=== PATIENT | male | born 1965 | race American Indian/Alaskan Native ===

== ENCOUNTER 2022-03-09 16:16 | Inpatient (IN) | payer SELFPAY ==
[2022-03-09] MEDS ORDERED: SODIUM CHLORIDE 0.9% 1000 ML 1,000 ML IV ONE (17:22)
--- NOTE | 2022-03-09 17:35 | Emergency Department Report ---
ED General Adult HPI - General Chief complaint: Syncope Stated complaint: PASSED OUT AT WORK PUI?: No Time Seen by Provider: 03/09/22 16:59 Source: patient, EMS Mode of arrival: Stretcher Limitations: No Limitations - History of Present Illness Initial comments: Pleasant 56-year-old male who stated he is prediabetic and also had a prostate surgery back in January 28 due to prostate cancer at [facility] by EMS today with concerns of almost syncopal episode at work [employer]. Patient denies passing and denies any other symptoms patient denies any fever chill night sweat dizziness blurred vision lightheadedness headache tinnitus ear pain runny nose sore throat loss of taste loss of smell chest pain palpitation short of breath cough abdominal pain nausea vomiting diarrhea constipation joint pain muscle pain new rash and heat or cold intolerance Severity scale (0 -10): 0 - Related Data Allergies Allergy/AdvReac Type Severity Reaction Status Date / Time No Known Allergies Allergy Verified 03/09/22 16:41 ED Review of Systems ROS: Stated complaint: PASSED OUT AT WORK Other details as noted in HPI Comment: All other systems reviewed and negative Constitutional: no symptoms reported, see HPI Eyes: as per HPI. denies: vision change ENT: as per HPI Respiratory: no symptoms reported, see HPI Cardiovascular: as per HPI. denies: chest pain, palpitations Endocrine: no symptoms reported, see HPI Gastrointestinal: as per HPI Genitourinary: as per HPI Musculoskeletal: as per HPI Skin: as per HPI Neurological: as per HPI Psychiatric: as per HPI Hematological/Lymphatic: as per HPI ED Past Medical Hx - Past Medical History Previous Medical History?: Yes Hx of Cancer: Yes (prostate cancer) Additional medical history: kidney removal ED Physical Exam - General Limitations: No Limitations - Head Head exam: Present: atraumatic, normocephalic, normal inspection - Eye Eye exam: Present: normal appearance, PERRL, EOMI Pupils: Present: normal accommodation - ENT ENT exam: Present: normal exam, mucous membranes dry - Neck Neck exam: Present: normal inspection, full ROM - Respiratory Respiratory exam: Present: normal lung sounds bilaterally - Cardiovascular Cardiovascular Exam: Present: regular rate, normal rhythm, normal heart sounds - GI/Abdominal GI/Abdominal exam: Present: soft - Extremities Exam Extremities exam: Present: normal inspection, full ROM - Back Exam Back exam: Present: normal inspection, full ROM - Neurological Exam Neurological exam: Present: alert, altered, oriented X3, CN II-XII intact - Psychiatric Psychiatric exam: Present: normal affect, normal mood - Skin Skin exam: Present: normal color ED Course Vital Signs 03/09/22 03/09/22 03/09/22 16:40 17:43 20:05 Temperature 98.8 F Pulse Rate 65 Respiratory 16 Rate Blood Pressure 130/70 [Right] O2 Sat by Pulse 100 99 100 Oximetry - Reevaluation(s) Reevaluation #1: 03/09/22 18:48 EKG AT 18:[address] ELEVATION/CONCAVE AT V2 ONLY; REST OF LEAD ARE ALL WITHOUT ST ELEVATION. I HAVE REEVALUATE THE PATIENT AND PATIENT HIMSELF DENIES ANY CHEST DISCOMFORT OR PALPITATION. PATIENT ALSO DENIES ANY OTHER SYMPTOMS. I WILL ORDER TOROPONIN/CK/ESR/CRP AND REPEAT EKG LATER. Reevaluation #2: 03/09/22 20:56 WILL SIGN OUT MY PATIENT CARE TO MY COLLEAGUE DR. CRUZ - Consultations Consultation #1: 03/09/22 20:[address] PEREZ (CABIN SUPERVISOR) AND SENT EKG IMAGE TO [phone]; AWARE OF NO CP BUT MILDLY ELEVATED CK. RECOMMENDATION IS OBSERVATION OVERNIGHT AND ECHO IN THE MORNING. WILL CALL HOSPITALIST. ED Medical Decision Making - Lab Data Result diagrams: 03/09/22 17:37 03/09/22 17:37 - EKG Data -: EKG Interpreted by Me EKG shows normal: ST-T waves (ST CONCAVE ELEVATION IN V2) Rate: normal - Medical Decision Making SPOKE TO CABIN SUPERVISOR DR. PEREZ; RECOMMEND OBSERVATION OVERNIGHT WITH ECHO IN THE MORNING AND HAVE HOSPITALIST PLACE AN CABIN SUPERVISOR CONSULTATION. PENDING DR. ELIAS TO CALL BACK. Critical care attestation.: If time is entered above; I have spent that time in minutes in the direct care of this critically ill patient, excluding procedure time. ED Disposition Clinical Impression: Elevated CK, Near syncope Disposition: 02 SHORT TERM HOSPITAL Is pt being admited?: Yes Does the pt Need Aspirin: No Condition: Stable Time of Disposition: 20:30
--- NOTE | 2022-03-09 17:40 | XRay Report ---
CHEST 1 VIEW INDICATION / CLINICAL INFORMATION: syncope. COMPARISON: None FINDINGS: SUPPORT DEVICES: None. HEART / MEDIASTINUM: No significant abnormality. LUNGS / PLEURA: No significant pulmonary or pleural abnormality. No pneumothorax. ADDITIONAL FINDINGS: No significant additional findings. IMPRESSION: 1. No acute findings. Signer Name: Cortes Ng MD Signed: 03/09/2022 5:35 PM Workstation Name: [id number]
[2022-03-09 17:54] LABS: Hematocrit 40.2 % (35.5-45.6); Hemoglobin 12.5 gm/dl (11.8-15.2); Mean Corpuscular HGB Conc 31 % (32-34); Mean Corpuscular Volume 77 fl (84-94); Platelet Count 345 K/mm3 (140-440); Red Blood Count 5.22 M/mm3 (3.65-5.03); Red Cell Distribution Width 16.5 % (13.2-15.2)
[2022-03-09 18:17] LABS: Calcium 9.3 mg/dL (8.4-10.2)
[2022-03-09 21:41] LABS: Bacteria,Urine 1+ /HPF (Negative); Bilirubin,Urine NEG (Negative); Blood,Urine SM (Negative); Color,Urine Yellow (Yellow); Mucus,Urine FEW /HPF
--- NOTE | 2022-03-09 21:44 | Event Note ---
Date: 03/09/22 (@ 21:00) Patient care transferred to ia from Dr. Pate. Per Dr. Pate, patient is to be admitted but he is unable to reach the hospitalist @ this time. ED Medical Decision Making - Lab Data Result diagrams: 03/09/22 17:37 03/09/22 17:37 Laboratory Tests 03/09/22 03/09/22 03/09/22 17:37 17:37 18:55 WBC 8.4 RBC 5.22 H Hgb 12.5 Hct 40.2 MCV 77 L MCH 24 L MCHC 31 L RDW 16.5 H Plt Count 345 ESR Sodium 143 Potassium 4.6 Chloride 103.9 Carbon Dioxide 23 Anion Gap 21 BUN 12 Creatinine 1.4 H Estimated GFR 52 BUN/Creatinine Ratio 9 Glucose 77 Calcium 9.3 Magnesium 2.10 Total Bilirubin 0.40 AST 22 ALT 11 Alkaline Phosphatase 67 Total Creatine Kinase 305 H Troponin T < 0.010 C-Reactive Protein Total Protein 6.9 Albumin 4.0 Albumin/Globulin Ratio 1.4 Urine Bilirubin Urine RBC (Auto) U Epithel Cells (Auto) 03/09/22 03/09/22 03/09/22 18:55 18:55 Unknown WBC RBC Hgb Hct MCV MCH MCHC RDW Plt Count ESR 2 Sodium Potassium Chloride Carbon Dioxide Anion Gap BUN Creatinine Estimated GFR BUN/Creatinine Ratio Glucose Calcium Magnesium Total Bilirubin AST ALT Alkaline Phosphatase Total Creatine Kinase Troponin T C-Reactive Protein 0.30 Total Protein Albumin Albumin/Globulin Ratio Urine Bilirubin Neg Urine RBC (Auto) 6.0 U Epithel Cells (Auto) < 1.0 CXR: no acute cardiopulmnary process No CT head done EKG @ 20:07 prior to my shift: HR 66, SR, nml intervals, isolated ST elevation in V2 without reciprocal ST depressions Dr. Cobos (cardiology) was consulted by Dr. Pate and he reportedly advised admitting patient to Medicine for ACS work up - Medical Decision Making IMPRESSION: 1. Loss of consciousness 2. Abnormal EKG ED Disposition Disposition: ADMITTED INPATIENT Is pt being admited?: Yes Does the pt Need Aspirin: No Condition: Stable Time of Disposition: 21:30 (Patient admitted to Dr. Nelson. Sign out was given by me to the admitting physician. )
[2022-03-09] MEDS ORDERED: ACETAMINOPHEN 325 MG TAB PO PRN ×2 (21:48)
[2022-03-09] MEDS ORDERED: MORPHINE 4 MG/1 ML INJ IV PRN ×2 (21:48)
[2022-03-09] MEDS ORDERED: MORPHINE 2 MG/1 ML INJ IV PRN (21:48)
[2022-03-09] MEDS ORDERED: NITROGLYCERIN 0.4 MG TAB SUBL SL PRN (21:48)
[2022-03-09] MEDS ORDERED: ONDANSETRON 4 MG/2 ML INJ IV PRN (21:48)
[2022-03-09] MEDS ORDERED: MAGNESIUM HYDROXIDE (MOM) ORAL LIQD UDC PO PRN (21:48)
--- NOTE | 2022-03-09 22:02 | History and Physical Report ---
History of Present Illness Date of examination: 03/09/22 Date of admission: 03/09/2022 Chief complaint: Syncope History of present illness: 56-year-old male with known history of prediabetes and prostate cancer presenting to the emergency room today for evaluation of previous syncopal episode while at work at [employer]. Patient denies any headache or dizziness, denies any blurry vision, denies any diaphoresis. He denies any fever or chills, no chest pain or shortness of breath, no nausea vomiting no abdominal pain. Work-up in the emergency room today, EKG was significant for an isolated ST elevation in V2 without reciprocal ST depressions. Findings were communicated to the agricultural education professor on-call who recommended no further work-up. Chest x-ray and other labs were otherwise unremarkable. Past History Past Medical History: other (History of prostate cancer) Past Surgical History: Other (Prostate cancer status post surgery, nephrectomy) Social history: smoking (Current daily smoker), other (Uses marijuana and cocaine occasionally. Last cocaine use was about a week ago) Family history: no significant family history Medications and Allergies Allergies Allergy/AdvReac Type Severity Reaction Status Date / Time No Known Allergies Allergy Verified 03/09/22 21:59 Home Medications Medication Instructions Recorded Confirmed Last Taken Type No Known Home Medications [No 03/09/22 03/09/22 Unknown History Reported Home Medications] Active Meds: Active Medications Acetaminophen (Acetaminophen 325 Mg Tab) 650 mg PO Q4H PRN PRN Reason: Pain MILD(1-3)/Fever >100.5/SIEGEL Review of Systems Constitutional: no fever, no chills Ears, nose, mouth and throat: no nasal congestion, no sore throat Respiratory: no cough, no shortness of breath Gastrointestinal: no abdominal pain, no nausea, no vomiting, no diarrhea, no coffee ground emesis Genitourinary Male: no dysuria, no hematuria, no flank pain, no urinary frequency, no urinary hesitancy, no polyuria Musculoskeletal: no neck pain, no low back pain Integumentary: no rash, no pruritis Neurological: syncope, no seizures, no headaches, no confusion Psychiatric: no anxiety, no depression Endocrine: no polyphagia, no polydipsia, no polyuria Exam - Constitutional Vitals: Temp Pulse Resp BP Pulse Ox 98.8 F 65 16 130/70 100 03/09/22 16:40 05/14/22 16:40 03/09/22 16:40 03/09/22 16:40 03/09/22 20:05 General appearance: Present: no acute distress, well-nourished - EENT Eyes: Present: PERRL, EOM intact. Absent: scleral icterus ENT: hearing intact, clear oral mucosa, dentition normal - Neck Neck: Present: supple, normal ROM - Respiratory Respiratory effort: normal Respiratory: bilateral: CTA - Cardiovascular Rhythm: regular Heart Sounds: Present: S1 & S2. Absent: gallop, systolic murmur, diastolic murmur, rub, click - Extremities Extremities: no ischemia, pulses intact, pulses symmetrical, No edema, normal temperature, normal color, Full ROM Peripheral Pulses: within normal limits - Abdominal General gastrointestinal: Present: soft, non-tender, non-distended, normal bowel sounds, other (Midline scar of old surgery on abdomen). Absent: mass - Integumentary Integumentary: Present: clear, warm, dry, normal turgor. Absent: rash - Musculoskeletal Musculoskeletal: strength equal bilaterally - Psychiatric Psychiatric: appropriate mood/affect, intact judgment & insight, memory intact, cooperative - Neurologic Neurologic: CNII-XII intact, no focal deficits, moves all extremities HEART Score - HEART Score Troponin: Troponin T < 0.010 ng/mL (0.00-0.029) 03/09/22 18:55 Results - Labs CBC & Chem 7: 03/10/22 05:05 03/10/22 05:05 Labs: Abnormal lab results 03/09/22 03/09/22 03/09/22 Range/Units 17:37 17:37 18:55 RBC 5.22 H (3.65-5.03) M/mm3 MCV 77 L (84-94) fl MCH 24 L (28-32) pg MCHC 31 L (32-34) % RDW 16.5 H (13.2-15.2) % Creatinine 1.4 H (0.8-1.3) mg/dL Total Creatine Kinase 305 H (55-170) units/L Urine WBC (Auto) (0.0-6.0) /HPF 03/09/22 Range/Units Unknown RBC (3.65-5.03) M/mm3 MCV (84-94) fl MCH (28-32) pg MCHC (32-34) % RDW (13.2-15.2) % Creatinine (0.8-1.3) mg/dL Total Creatine Kinase (55-170) units/L Urine WBC (Auto) 132.0 H (0.0-6.0) /HPF Assessment and Plan - Patient Problems (1) Syncope Current Visit: Yes Status: Acute Plan to address problem: Etiology is unclear. Patient is being scheduled for echocardiogram and carotid Doppler. (2) Abnormal EKG Current Visit: Yes Status: Acute Plan to address problem: Will continue to monitor patient on telemetry. We will also trend cardiac enzymes. Consult placed to cardiology for further evaluation and recommendations. (3) History of prostate cancer Current Visit: Yes Status: Acute Plan to address problem: Patient is status post prostatectomy at [facility] on January 28, 2022. (4) History of nephrectomy Current Visit: Yes Status: Acute (5) Tobacco abuse Current Visit: Yes Status: Acute Plan to address problem: + On quitting tobacco abuse. (6) Elevated CK Current Visit: Yes Status: Acute Plan to address problem: Will continue to monitor CK level. (7) DVT prophylaxis Current Visit: Yes Status: Acute Plan to address problem: Patient placed on subcutaneous heparin. (8) Full code status Current Visit: Yes Status: Acute Plan to address problem: Patient is full code.
[2022-03-10] MEDS: SODIUM CHLORIDE 0.9% 1000 ML 1,000 ML IV SCH ×3 (01:28→17:19)
[2022-03-10 05:25] LABS: Basophils # (Auto) 0.1 K/mm3 (0.0-0.1); Basophils % (Auto) 0.9 % (0.0-1.8); Eosinophils # (Auto) 0.2 K/mm3 (0.0-0.4); Eosinophils % (Auto) 2.9 % (0.0-4.3); Lymphocytes # (Auto) 2.3 K/mm3 (1.2-5.4); Lymphocytes % (Auto) 36.4 % (13.4-35.0); Mean Corpuscular HGB Conc 31 % (32-34); Mean Corpuscular Volume 77 fl (84-94); Monocytes # (Auto) 0.9 K/mm3 (0.0-0.8); Monocytes % (Auto) 13.6 % (0.0-7.3); Platelet Count 292 K/mm3 (140-440); Red Blood Count 4.52 M/mm3 (3.65-5.03); Red Cell Distribution Width 16.5 % (13.2-15.2)
[2022-03-10 05:35] LABS: BUN/Creatinine Ratio 12; Blood Urea Nitrogen 14 mg/dL (9-20); Calcium 8.4 mg/dL (8.4-10.2); Hemolysis Index 5
[2022-03-10] MEDS: ASPIRIN EC 325 MG TAB PO SCH (09:02)
[2022-03-10] MEDS: traMADol 50 MG TAB PO PRN (09:02)
--- NOTE | 2022-03-10 11:36 | Consultation ---
History of Present Illness Consult date: 03/10/22 Consult reason: other (Near syncope) History of present illness: 56-year-old male with past medical history of prostate cancer status post surger y in January 2022 and prediabetes is admitted after episode of near syncope while at work. Patient works at [employer] and reports that he became dizzy and felt like he would pass out. He did not have loss of consciousness. He otherwise denies chest pain, shortness of breath, or lightheadedness. Work-up notable for EKG with possible type 2 Brugada pattern but no acute ischemic changes, troponin x2 negative, CK 305, creatinine 1.4 on presentation (currently 1.2). Past History Past Medical History: other (History of prostate cancer) Past Surgical History: Other (Prostate cancer status post surgery, nephrectomy) Social history: smoking (Current daily smoker), other (Uses marijuana and cocaine occasionally. Last cocaine use was about a week ago) Family history: no significant family history Medications and Allergies Allergies Allergy/AdvReac Type Severity Reaction Status Date / Time No Known Allergies Allergy Verified 03/09/22 21:59 Home Medications Medication Instructions Recorded Confirmed Last Taken Type No Known Home Medications [No 03/09/22 03/09/22 Unknown History Reported Home Medications] Active Meds: Active Medications Acetaminophen (Acetaminophen 325 Mg Tab) 650 mg PO Q4H PRN PRN Reason: Pain MILD(1-3)/Fever >100.5/SIEGEL Aspirin (Aspirin Ec 325 Mg Tab) 325 mg PO QDAY [facility] Last Admin: 03/10/22 09:02 Dose: 325 mg Heparin Sodium (Porcine) (Heparin 5,000 Unit/1 Ml Vial) 5,000 unit SUB-Q Q8HR [facility] Sodium Chloride (Nacl 0.9% 1000 Ml) 1,000 mls @ 125 mls/hr IV DIRECT [facility] Last Admin: 03/10/22 09:30 Dose: 125 mls/hr Magnesium Hydroxide (Magnesium Hydroxide (Mom) Oral Liqd Udc) 30 ml PO Q4H PRN PRN Reason: Constipation Morphine Sulfate (Morphine 2 Mg/1 Ml Inj) 2 mg IV Q4H PRN PRN Reason: Pain, Moderate (4-6) Morphine Sulfate (Morphine 4 Mg/1 Ml Inj) 4 mg IV Q4H PRN PRN Reason: Pain , Severe (7-10) Morphine Sulfate (Morphine 4 Mg/1 Ml Inj) 2 mg IV Q5MIN PRN PRN Reason: Chest Pain unrelieved by NTG Nitroglycerin (Nitroglycerin 0.4 Mg Tab Subl) 0.4 mg SL Q5M PRN PRN Reason: Chest Pain Ondansetron HCl (Ondansetron 4 Mg/2 Ml Inj) 4 mg IV Q8H PRN PRN Reason: Nausea And Vomiting Sodium Chloride (Sodium Chloride 0.9% 10 Ml Flush Syringe) 10 ml IV BID CANDIDO Last Admin: 03/10/22 09:02 Dose: 10 ml Sodium Chloride (Sodium Chloride 0.9% 10 Ml Flush Syringe) 10 ml IV PRN PRN PRN Reason: LINE FLUSH Sodium Chloride (Sodium Chloride 0.9% 10 Ml Flush Syringe) 10 ml IV PRN PRN PRN Reason: LINE FLUSH Tramadol HCl (Tramadol 50 Mg Tab) 50 mg PO Q6H PRN PRN Reason: Pain, Moderate (4-6) Last Admin: 03/10/22 09:02 Dose: 50 mg Physical Examination Vital Signs Temp Pulse Resp BP Pulse Ox 98.8 F 65 16 130/70 100 03/09/22 16:40 03/09/22 16:40 03/09/22 16:40 03/09/22 16:40 03/09/22 16:40 Results 03/10/22 05:05 03/10/22 05:05 Cardiac Enzymes 03/09/22 Range/Units 17:37 AST 22 (5-40) units/L CBC 03/09/22 03/10/22 Range/Units 17:37 05:05 WBC 8.4 6.3 (4.5-11.0) K/mm3 RBC 5.22 H 4.52 (3.65-5.03) M/mm3 Hgb 12.5 11.0 L (11.8-15.2) gm/dl Hct 40.2 35.0 L (35.5-45.6) % Plt Count 345 292 (140-440) K/mm3 Lymph # (Auto) 2.3 (1.2-5.4) K/mm3 [place] # (Auto) 0.9 H (0.0-0.8) K/mm3 Eos # (Auto) 0.2 (0.0-0.4) K/mm3 Baso # (Auto) 0.1 (0.0-0.1) K/mm3 Comprehensive Metabolic Panel 03/09/22 03/10/22 Range/Units 17:37 05:05 Sodium 143 138 (137-145) mmol/L Potassium 4.6 3.8 (3.6-5.0) mmol/L Chloride 103.9 104.6 (98-107) mmol/L Carbon Dioxide 23 23 (22-30) mmol/L BUN 12 14 (9-20) mg/dL Creatinine 1.4 H 1.2 (0.8-1.3) mg/dL Glucose 77 95 (75-100) mg/dL Calcium 9.3 8.4 (8.4-10.2) mg/dL AST 22 (5-40) units/L ALT 11 (7-56) units/L Alkaline Phosphatase 67 (35-129) units/L Total Protein 6.9 (6.3-8.2) g/dL Albumin 4.0 (3.9-5) g/dL Tele - SR with HR to ~45 overnight 03/09/2022 EKG - SR, incomplete RBBB with J point elevation (possibly type 2 Br pattern) Assessment and Plan #Near syncope #Possible Bruagda type 2 pattern on EKG #Nocturnal sinus bradycardia #Prostate CA s/p surgery January 2022 #Pre-DM EKG is possibly suggestive of type 2 Brugada pattern. Will repeat EKG by moving right intercostal leads to 1st and 2nd intercostal spaces. Await echo. Recommend fever avoidance / prevention using tylenol / NSAID. Fever is known to trigger transition to Brugada pattern 1. Patient will likely benefit from out-patient event monitor and consideration of procainamide drug challenge. Continue telemetry monitoring.
--- NOTE | 2022-03-10 12:30 | Progress Note ---
Assessment and Plan Assessment and plan: #Syncope -Etiology is unclear -orthostatic VS ordered -echocardiogram pending #Abnormal EKG -continue telemetry -troponin negative x2 -EKG interpreted to have possible Type 2 Brugada pattern per Toggle Press Operator -Cardiology following, recommendations appreciated #Volume depletion -Patient with hemoconcentration on labs -Improvement status post IVFs #History of prostate cancer -status post prostatectomy at [facility] on January 28, 2022. #History of nephrectomy -stable #Tobacco abuse #Tobacco cessation counseling -smokes about 4 cigarettes daily -smoking cessation counseling, supportive care, behavior change counseling, +15 minutes. #Elevated CK -CK 305, troponin negative x2, SCr 1.2 -will trend for improvement #Advanced care planning -Disease education conducted, care plan discussed, diagnoses discussed, prognosis discussed, and patient acknowledges understanding with care plan -Time: +30 min History Interval history: No acute events overnight. Patient reports not having any symptoms prior to syncopal episode. Currently not having any headache, lightheadedness, dizziness, chest pain or shortness of breath. No complaints at this time. Hospitalist Physical - Physical exam Narrative exam: GENERAL: Thin male. In no acute distress. HEENT: Normocephalic. Atraumatic. NECK: Supple. CHEST/LUNGS: CTAB on room air HEART/CARDIOVASCULAR: RRR. No murmur, rubs or gallops appreciated. ABDOMEN: +BS. NT/ND. SKIN: No rashes noted. NEURO: No focal motor deficit. Follows all commands. MUSCULOSKELETAL: No joint effusion EXTREMITIES: No cyanosis, clubbing or edema. PSYCH: Cooperative. - Constitutional Vitals: Temp Pulse Resp BP Pulse Ox 98.0 F 64 14 128/93 97 03/10/22 10:56 03/10/22 10:56 03/10/22 10:56 03/10/22 10:56 03/10/22 10:56 General appearance: Present: no acute distress, well-nourished HEART Score - HEART Score Troponin: Troponin T < 0.010 ng/mL (0.00-0.029) 03/10/22 05:05 Results - Labs CBC & Chem 7: 03/10/22 05:05 03/10/22 05:05 Labs: Laboratory Last Values WBC 6.3 K/mm3 (4.5-11.0) 03/10/22 05:05 RBC 4.52 M/mm3 (3.65-5.03) 03/10/22 05:05 Hgb 11.0 gm/dl (11.8-15.2) L 03/10/22 05:05 Hct 35.0 % (35.5-45.6) L 03/10/22 05:05 MCV 77 fl (84-94) L 03/10/22 05:05 MCH 24 pg (28-32) L 03/10/22 05:05 MCHC 31 % (32-34) L 03/10/22 05:05 RDW 16.5 % (13.2-15.2) H 03/10/22 05:05 Plt Count 292 K/mm3 (140-440) 03/10/22 05:05 Lymph % (Auto) 36.4 % (13.4-35.0) H 03/10/22 05:05 [place] % (Auto) 13.6 % (0.0-7.3) H 03/10/22 05:05 Eos % (Auto) 2.9 % (0.0-4.3) 03/10/22 05:05 Baso % (Auto) 0.9 % (0.0-1.8) 03/10/22 05:05 Lymph # (Auto) 2.3 K/mm3 (1.2-5.4) 03/10/22 05:05 [place] # (Auto) 0.9 K/mm3 (0.0-0.8) H 03/10/22 05:05 Eos # (Auto) 0.2 K/mm3 (0.0-0.4) 03/10/22 05:05 Baso # (Auto) 0.1 K/mm3 (0.0-0.1) 03/10/22 05:05 Seg Neutrophils % 46.2 % (40.0-70.0) 03/10/22 05:05 Seg Neutrophils # 2.9 K/mm3 (1.8-7.7) 03/10/22 05:05 ESR 2 mm/Hr (0-20) 03/09/22 18:55 Sodium 138 mmol/L (137-145) 03/10/22 05:05 Potassium 3.8 mmol/L (3.6-5.0) 03/10/22 05:05 Chloride 104.6 mmol/L (98-107) 03/10/22 05:05 Carbon Dioxide 23 mmol/L (22-30) 03/10/22 05:05 Anion Gap 14 mmol/L 03/10/22 05:05 BUN 14 mg/dL (9-20) 03/10/22 05:05 Creatinine 1.2 mg/dL (0.8-1.3) 03/10/22 05:05 Estimated GFR > 60 ml/min 03/10/22 05:05 BUN/Creatinine Ratio 12 % 03/10/22 05:05 Glucose 95 mg/dL (75-100) 03/10/22 05:05 Calcium 8.4 mg/dL (8.4-10.2) 03/10/22 05:05 Magnesium 2.10 mg/dL (1.7-2.3) 03/09/22 17:37 Total Bilirubin 0.40 mg/dL (0.1-1.2) 03/09/22 17:37 AST 22 units/L (5-40) 03/09/22 17:37 ALT 11 units/L (7-56) 03/09/22 17:37 Alkaline Phosphatase 67 units/L (35-129) 03/09/22 17:37 Total Creatine Kinase 305 units/L (55-170) H 03/09/22 18:55 Troponin T < 0.010 ng/mL (0.00-0.029) 03/10/22 05:05 C-Reactive Protein 0.30 mg/dL (0.00-1.30) 03/09/22 18:55 Total Protein 6.9 g/dL (6.3-8.2) 03/09/22 17:37 Albumin 4.0 g/dL (3.9-5) 03/09/22 17:37 Albumin/Globulin Ratio 1.4 % 03/09/22 17:37 Urine Color Yellow (Yellow) 03/09/22 Unknown Urine Turbidity Clear (Clear) 03/09/22 Unknown Urine pH 5.0 (5.0-7.0) 03/09/22 Unknown Ur Specific [place] 1.015 (1.003-1.030) 03/09/22 Unknown Urine Protein 30 mg/dl mg/dL (Negative) 03/09/22 Unknown Urine Glucose (UA) Neg mg/dL (Negative) 03/09/22 Unknown Urine Ketones Tr mg/dL (Negative) 03/09/22 Unknown Urine Blood Sm (Negative) 03/09/22 Unknown Urine Nitrite Neg (Negative) 03/09/22 Unknown Urine Bilirubin Neg (Negative) 03/09/22 Unknown Urine Urobilinogen 2.0 mg/dL (<2.0) 03/09/22 Unknown Ur Leukocyte Esterase Lg (Negative) 03/09/22 Unknown Urine WBC (Auto) 132.0 /HPF (0.0-6.0) H 03/09/22 Unknown Urine RBC (Auto) 6.0 /HPF (0.0-6.0) 03/09/22 Unknown U Epithel Cells (Auto) < 1.0 /HPF (0-13.0) 03/09/22 Unknown Urine Bacteria (Auto) 1+ /HPF (Negative) 03/09/22 Unknown Urine Mucus Few /HPF 03/09/22 Unknown [place]ang/IV: Voiding Method Toilet Active Medications - Current Medications Current Medications: Generic Name Dose Route Start Last Admin Trade Name Freq PRN Reason Stop Dose Admin Acetaminophen 650 mg 03/09/22 21:48 Acetaminophen 325 Mg Tab PO Q4H PRN Pain MILD(1-3)/Fever >100.5/SIEGEL Aspirin 325 mg 03/10/22 10:00 03/10/22 09:02 Aspirin Ec 325 Mg Tab PO 325 mg QDAY CANDIDO Administration Heparin Sodium (Porcine) 5,000 unit 03/10/22 14:00 Heparin 5,000 Unit/1 Ml Vial SUB-Q Q8HR CANDIDO Sodium Chloride 1,000 mls @ 125 mls/hr 03/09/22 22:00 03/10/22 09:30 Nacl 0.9% 1000 Ml IV 125 mls/hr DIRECT CANDIDO Administration Magnesium Hydroxide 30 ml 03/09/22 21:48 Magnesium Hydroxide (Mom) Oral Liqd Udc PO Q4H PRN Constipation Morphine Sulfate 2 mg 03/09/22 21:48 Morphine 2 Mg/1 Ml Inj IV Q4H PRN Pain, Moderate (4-6) Morphine Sulfate 4 mg 03/09/22 21:48 Morphine 4 Mg/1 Ml Inj IV Q4H PRN Pain , Severe (7-10) Morphine Sulfate 2 mg 03/09/22 21:48 Morphine 4 Mg/1 Ml Inj IV Q5MIN PRN Chest Pain unrelieved by NTG Nitroglycerin 0.4 mg 03/09/22 21:48 Nitroglycerin 0.4 Mg Tab Subl SL Q5M PRN Chest Pain Ondansetron HCl 4 mg 03/09/22 21:48 Ondansetron 4 Mg/2 Ml Inj IV Q8H PRN Nausea And Vomiting Sodium Chloride 10 ml 03/09/22 22:00 03/10/22 09:02 Sodium Chloride 0.9% 10 Ml Flush Syringe IV 10 ml BID CANDIDO Administration Sodium Chloride 10 ml 03/09/22 21:48 Sodium Chloride 0.9% 10 Ml Flush Syringe IV PRN PRN LINE FLUSH Sodium Chloride 10 ml 03/09/22 21:48 Sodium Chloride 0.9% 10 Ml Flush Syringe IV PRN PRN LINE FLUSH Tramadol HCl 50 mg 03/09/22 21:48 03/10/22 09:02 Tramadol 50 Mg Tab PO 50 mg Q6H PRN Administration Pain, Moderate (4-6)
[2022-03-10] MEDS: HEPARIN 5,000 UNIT/1 ML VIAL SUB-Q SCH ×2 (13:51→21:18)
[2022-03-11] MEDS: SODIUM CHLORIDE 0.9% 1000 ML 1,000 ML IV SCH ×2 (01:07→10:58)
[2022-03-11] MEDS: HEPARIN 5,000 UNIT/1 ML VIAL SUB-Q SCH (06:28)
[2022-03-11] MEDS: traMADol 50 MG TAB PO PRN (10:53)
[2022-03-11] MEDS: ASPIRIN EC 325 MG TAB PO SCH (10:56)
--- NOTE | 2022-03-11 12:37 | Progress Note ---
Assessment and Plan - Patient Problems (1) Syncope Current Visit: Yes Status: Acute Plan to address problem: 56-year-old male who presented with syncope. 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 He states that the kitchen was very warm at the time, his symptoms were accompanied by profuse diaphoresis. There was no palpitations, no chest pain, no shortness of breath. Echocardiogram done on this presentation shows normal left ventricular systolic function, ejection fraction 55%. Symptoms appear to suggest a basal depressor reaction, but he was seen by the autoglazier who recommends outpatient event monitoring. He is stable for cardiac discharge to follow-up with Dr. Cobos in 5 to 7 days. Subjective Date of service: 03/11/22 Principal diagnosis: Syncope Interval history: Patient is comfortable, no new cardiac complaints, no new cardiac events reported. Objective Vital Signs Temp Pulse Resp BP BP Pulse Ox 03/11/22 08:19 97.9 F 50 L 18 159/87 99 03/11/22 03:57 98 03/11/22 03:08 97.7 F 66 14 159/99 99 03/10/22 23:06 98.1 F 63 16 131/88 98 03/10/22 19:13 98.1 F 61 18 136/81 99 03/10/22 17:12 98.8 F 60 136/81 03/10/22 16:10 61 16 167/96 100 - Physical Examination General: No Apparent Distress HEENT: Positive: PERRL Neck: Positive: neck supple Cardiac: Positive: Reg Rate and Rhythm Lungs: Positive: clear to auscultation Neuro: Positive: Grossly Intact Abdomen: Positive: Soft Skin: Positive: Clear Extremities: Absent: edema
--- NOTE | 2022-03-11 15:19 | Discharge Summary ---
Providers - Providers Date of Admission: 03/09/22 21:48 Date of discharge: 03/11/22 Attending physician: BOLIVAR GORDON MD 03/09/22 Consult to Cardiac Rehabilitation [CONS] Routine Reason For Exam: Phase I 03/09/22 21:48 Consult to Cardiology [CONS] Routine Consulting Provider: NITIN COBOS Reason For Exam: Syncope,Abnormal EKG Primary care physician: JACKIE SLOAN Hospitalization Reason for admission: syncope Condition: Stable Hospital course: 56-year-old male history of prostate cancer status post radical prostatectomy and prediabetes who presented to the ED after syncopal episode at work. Initial EKG was significant for an isolated ST elevation in V2. Cardiology was consul saul and recommended outpatient event monitor. Echocardiogram showed ejection fraction of 55%, no evidence of ASD. The orthostatic vital signs were negative. Once stable, patient was discharged home. Disposition: 01 HOME / SELF CARE / HOMELESS Final Discharge Diagnosis (Prints w/discharge instructions): Syncope. Abnormal EKG findings. Volume depletion. History of prostate cancer. History of nephrectomy. Tobacco abuse. Elevated CK Time spent for discharge: 25 minutes Core Measure Documentation - Palliative Care Palliative Care/ Comfort Measures: Not Applicable - Core Measures Any of the following diagnoses?: none Exam - Physical Exam Narrative exam: GENERAL: Thin male. In no acute distress. HEENT: Normocephalic. Atraumatic. NECK: Supple. CHEST/LUNGS: CTAB on room air HEART/CARDIOVASCULAR: RRR. No murmur, rubs or gallops appreciated. ABDOMEN: +BS. NT/ND. SKIN: No rashes noted. NEURO: No focal motor deficit. Follows all commands. MUSCULOSKELETAL: No joint effusion EXTREMITIES: No cyanosis, clubbing or edema. PSYCH: Cooperative. - Constitutional Vitals: Temp Pulse Resp BP Pulse Ox 97.8 F 56 L 18 152/85 100 03/11/22 11:33 03/11/22 11:33 03/11/22 11:33 03/11/22 11:33 03/11/22 11:33 Plan Care Plan Goals: Please establish care with a primary care provider. You have high blood pressure and we are prescribing a medication to you to help with it. Please make an appointment with Dr. Cobos within the next 7 days to get an device to monitor your heart for any arrhythmias. Follow up with: JACKIE SLOAN MD [Primary Care Provider] - 7 Days NITIN COBOS MD [Staff Physician] - 7 Days Prescriptions: amLODIPine 10 mg PO DAILY 90 Days #90 tab
[2022-03-11 17:30] VITALS: BP 151/90
--- NOTE | 2022-03-12 18:40 | Electrocardiograph Report ---
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
--- NOTE | 2022-03-12 18:41 | Electrocardiograph Report ---
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
--- NOTE | 2022-03-12 18:42 | Electrocardiograph Report ---
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
--- NOTE | 2022-03-12 18:46 | Electrocardiograph Report ---
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
--- NOTE | 2022-03-13 09:58 | Electrocardiograph Report ---
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
== END 2022-03-11 18:00 | disposition home or self-care (01) | DRG 312 ==
LOC: ED 16:16 → 4A 21:48
PROVIDERS: ADMIT Internal Medicine Geriatric Medicine; ATTEND Student in an Organized Health Care Education/Training Program
DX: R55 Syncope and collapse (principal); R74.8 Abnormal levels of other serum enzymes; R00.1 Bradycardia, unspecified; E86.9 Volume depletion, unspecified; Z85.46 Personal history of malignant neoplasm of prostate
CPT/HCPCS: 36415; 71045; 80048; 80053; 81001; 82550; 83735; 84484; 85025; 85027; 85652; 86140; 93005; 93306; G0378; C8929; J1644; J7030